=== PATIENT | male | born 1935 | race Two or more races ===

== ENCOUNTER 2017-04-29 05:23 | Inpatient (IN) | payer BC ==
[2017-04-29 06:01] LABS: ADD MAN DIFF? NO
[2017-04-29 06:11] LABS: ABNORMAL IP MESSAGE 1; BASOPHILS % 0.1 % (0.0-2.0); HEMATOCRIT 41.4 % (42.0-52.0); LYMPHOCYTES # 0.5 10^3/ul (0.8-2.9); LYMPHOCYTES % 5.9 % (15.0-51.0); MEAN CORPUSCULAR HEMOGLOBIN 32.3 pg (29.0-33.0); MEAN CORPUSCULAR HGB CONC 31.4 g/dl (32.0-37.0); MEAN CORPUSCULAR VOLUME 102.7 fl (82.0-101.0); MEAN PLATELET VOLUME 11.3 fl (7.4-10.4); MONOCYTE # 0.6 10^3/ul (0.3-0.9); MONOCYTES % 6.1 % (0.0-11.0); NEUTROPHIL # 7.9 10^3/ul (1.6-7.5); NEUTROPHILS % 86.8 % (39.0-77.0); PLATELET COUNT 239 10^3/UL (140-415); POSITIVE DIFF @See below; RED BLOOD COUNT 4.03 10^6/ul (4.70-6.10); RED CELL DISTRIBUTION WIDTH 13.4 % (11.5-14.5)
[2017-04-29 06:11] LABS: WHITE BLOOD COUNT 9.1 10^3/ul (4.8-10.8)
[2017-04-29 06:19] LABS: AADO2 Arterial 397.2 mmHg (7.0-24.0); Arterial Base Excess 5.9 mmol/L (-3.0-3); Arterial Blood Gas Oxygen Sat 99.4 mmHG (95.0-100.0); Arterial COHb 1.2 % (0.0-3.0); Arterial Fraction of Oxyhgb 98.1 % (93.0-99.0); Arterial HCO3 31.5 mmol/L (22.0-26.0); Arterial MetHb 0.1 % (0.0-1.5); Arterial Total Hemglobin 13.2 g/dl (12.0-18.0); Arterial pCO2 49.4 mmhg (35-45); Blood Gas Mean Airway Pressure 12; MODE VENT - AC; Site Right Brachial
[2017-04-29 06:36] LABS: INR 2.03; PROTIME 23.4 Sec (11.9-14.9); PT RATIO 1.8
[2017-04-29 06:37] LABS: PARTIAL THROMBOPLASTIN TIME 41.7 Sec (25.0-35.0)
[2017-04-29 06:40] LABS: ALANINE AMINOTRANSFERASE 36 IU/L (13-69); ALBUMIN/GLOBULIN RATIO 0.85; ALKALINE PHOSPHATASE 97 IU/L (42-121); ANION GAP 26 (8-16); ASPARTATE AMINO TRANSFERASE 36 IU/L (15-46); BLOOD UREA NITROGEN 29 mg/dl (7-20); CALCIUM 7.7 mg/dl (8.4-10.2); CARBON DIOXIDE 30 mmol/L (21-31); CHLORIDE 106 mmol/L (97-110); CREATININE 1.41 mg/dl (0.61-1.24); LIPASE 61 U/L (23-300); POTASSIUM 5.9 mmol/L (3.5-5.1); SODIUM 156 mmol/L (135-144); TOTAL PROTEIN 6.5 g/dl (6.1-8.1)
[2017-04-29 06:43] LABS: GLUCOSE 500 mg/dl (70-220)
[2017-04-29 06:51] LABS: TROPONIN-I 0.093 ng/ml (0.00-0.12)
[2017-04-29] MEDS: SODIUM CHLORIDE 0.9% 1L BAG IV* (06:52)
[2017-04-29] MEDS ORDERED: ETOMIDATE 20 MG INJ (07:00)
[2017-04-29] MEDS ORDERED: ROCURONIUM 50 MG INJ (07:00)
[2017-04-29] MEDS: NA POLYST SULFON 15 GM/60 ML BTL PO (07:38)
[2017-04-29] MEDS: PROPOFOL 100 ML IV (07:38)
[2017-04-29 08:39] LABS: LACTIC ACID 2.6 mmol/L (0.5-2.0)
[2017-04-29 11:37] LABS: LACTIC ACID 2.6 mmol/L (0.5-2.0)
[2017-04-29 11:44] LABS: ADD MAN DIFF? NO
[2017-04-29 11:46] LABS: BASOPHILS % 0.2 % (0.0-2.0); HEMATOCRIT 37.3 % (42.0-52.0); HEMOGLOBIN 11.7 g/dl (14.0-18.0); LYMPHOCYTES # 0.8 10^3/ul (0.8-2.9); LYMPHOCYTES % 7.9 % (15.0-51.0); MEAN CORPUSCULAR HEMOGLOBIN 31.7 pg (29.0-33.0); MEAN CORPUSCULAR HGB CONC 31.4 g/dl (32.0-37.0); MEAN CORPUSCULAR VOLUME 101.1 fl (82.0-101.0); MEAN PLATELET VOLUME 10.9 fl (7.4-10.4); MONOCYTE # 0.9 10^3/ul (0.3-0.9); MONOCYTES % 8.7 % (0.0-11.0); NEUTROPHIL # 8.3 10^3/ul (1.6-7.5); NEUTROPHILS % 82.4 % (39.0-77.0); PLATELET COUNT 209 10^3/UL (140-415); RED BLOOD COUNT 3.69 10^6/ul (4.70-6.10); RED CELL DISTRIBUTION WIDTH 13.2 % (11.5-14.5)
[2017-04-29 11:46] LABS: WHITE BLOOD COUNT 10.1 10^3/ul (4.8-10.8)
[2017-04-29 12:10] LABS: CREATINE KINASE 136 IU/L (23-200)
[2017-04-29 12:26] LABS: CK INDEX 2.3
[2017-04-29 12:30] LABS: CK-MB 3.19 ng/ml (0.0-2.4)
[2017-04-29 12:35] LABS: TROPONIN-I 0.834 ng/ml (0.00-0.12)
[2017-04-29 13:01] LABS: HEPATITIS C VIRAL ANTIBODY NEGATIVE (NEGATIVE)
[2017-04-29] MEDS: PIPER-TAZO 3.375 GM IV (PMX) 100 ML IVPB ×3 (13:08→23:54)
[2017-04-29 13:12] LABS: HIV 1&2 ANTIBODY NEGATIVE (NEGATIVE)
[2017-04-29 13:25] LABS: HEPATITIS B SURFACE ANTIGEN NEGATIVE (NEGATIVE)
[2017-04-29] MEDS ORDERED: DEXTROSE 50% 50 ML SYRINGE IV ×2 (13:30)
[2017-04-29] MEDS: ACCU-CHEK XX ×12 (13:30→23:51)
[2017-04-29 13:36] LABS: LACTIC ACID 2.3 mmol/L (0.5-2.0)
[2017-04-29 13:42] LABS: OSMOLALITY 325 mOsm/kg (280-295)
[2017-04-29] MEDS: VANCOMYCIN 1 GM (PMX) 250 ML IVPB (13:42)
[2017-04-29 13:44] LABS: ADD UMIC YES; UR ASCORBIC ACID NEGATIVE (NEGATIVE); UR BILIRUBIN (Dip) NEGATIVE (NEGATIVE); UR BLOOD (Dip) NEGATIVE (NEGATIVE); UR CLARITY CLOUDY (CLEAR); UR COLOR AMBER (YELLOW); UR GLUCOSE (Dip) 3+ mg/dL (NEGATIVE); UR KETONES (Dip) NEGATIVE (NEGATIVE); UR LEUKOCYTE ESTERASE (Dip) NEGATIVE Leu/ul (NEGATIVE); UR NITRITE (Dip) NEGATIVE (NEGATIVE); UR RBC 1 /HPF (0-5); UR SPECIFIC GRAVITY (Dip) 1.027 (1.003-1.030); UR SQUAMOUS EPITHELIAL CELL FEW /HPF (FEW); UR TOTAL PROTEIN (Dip) 3+ mg/dl (NEGATIVE); UR UROBILINOGEN (Dip) NEGATIVE (NEGATIVE); UR WBC 4 /HPF (0-5)
[2017-04-29] MEDS: ALBUTEROL 0.083% (NEB) 2.5 MG/3 ML AMP HHN (14:41)
[2017-04-29] MEDS: IPRATROPIUM (NEB) 0.5 MG/2.5 ML AMP HHN (14:41)
[2017-04-29 15:01] LABS: FREE T4 (FREE THYROXINE) 1.19 ng/dl (0.85-1.93)
[2017-04-29] MEDS: INSULIN HUMAN REGULAR 100 UNIT in SOD CHLORIDE 0.9% 99 ML IV (16:24)
[2017-04-29] MEDS: ENOXAPARIN 80 MG/0.8 ML SYG SC (16:25)
[2017-04-29] MEDS: ALBUTEROL/IPRATROPIUM (NEB) 3 ML AMP HHN (17:00)
[2017-04-29] MEDS ORDERED: VANCOMYCIN IV PER PHARMACY XX (17:00)
[2017-04-29 17:09] LABS: HEPATITIS B SURFACE ANTIBODY INDETERMINATE (NEGATIVE)
[2017-04-29] MEDS: SOD CHLORIDE 0.45% 1,000 ML IV (17:33)
[2017-04-29 17:53] LABS: CREATINE KINASE 51 IU/L (23-200)
[2017-04-29 18:05] LABS: CK INDEX 4.6
[2017-04-29 18:06] LABS: CK-MB 2.33 ng/ml (0.0-2.4); TROPONIN-I 0.678 ng/ml (0.00-0.12)
[2017-04-29] MEDS: VANCOMYCIN 1 GM 250 ML IVPB (18:32)
[2017-04-29] MEDS: IPRATROPIUM (HFA) 12.9 GM INHALER INH (21:26)
[2017-04-29] MEDS: ALBUTEROL HFA 8 GM INHALER INH (21:27)
[2017-04-30] MEDS: ACCU-CHEK XX ×23 (01:45→23:12)
[2017-04-30] MEDS: IPRATROPIUM (HFA) 12.9 GM INHALER INH ×4 (02:07→19:51)
[2017-04-30] MEDS: ALBUTEROL HFA 8 GM INHALER INH ×4 (02:07→19:51)
[2017-04-30 05:38] LABS: ADD MAN DIFF? NO
[2017-04-30 05:45] LABS: WHITE BLOOD COUNT 14.5 10^3/ul (4.8-10.8)
[2017-04-30 05:45] LABS: BASOPHILS % 0.3 % (0.0-2.0); EOSINOPHILS # 0.1 10^3/ul (0.0-0.5); EOSINOPHILS % 0.5 % (0.0-7.0); HEMATOCRIT 36.9 % (42.0-52.0); LYMPHOCYTES # 1.3 10^3/ul (0.8-2.9); LYMPHOCYTES % 8.9 % (15.0-51.0); MEAN CORPUSCULAR HEMOGLOBIN 31.9 pg (29.0-33.0); MEAN CORPUSCULAR HGB CONC 32.5 g/dl (32.0-37.0); MEAN CORPUSCULAR VOLUME 98.1 fl (82.0-101.0); MEAN PLATELET VOLUME 11.3 fl (7.4-10.4); MONOCYTE # 0.9 10^3/ul (0.3-0.9); MONOCYTES % 6.2 % (0.0-11.0); NEUTROPHIL # 12.1 10^3/ul (1.6-7.5); NEUTROPHILS % 83.5 % (39.0-77.0); PLATELET COUNT 240 10^3/UL (140-415); RED BLOOD COUNT 3.76 10^6/ul (4.70-6.10); RED CELL DISTRIBUTION WIDTH 13.5 % (11.5-14.5)
[2017-04-30] MEDS: SOD CHLORIDE 0.45% 1,000 ML IV ×2 (05:54→10:23)
[2017-04-30] MEDS: PIPER-TAZO 3.375 GM IV (PMX) 100 ML IVPB ×2 (05:55→12:19)
[2017-04-30] MEDS: PANTOPRAZOLE 40 MG INJ IV (05:56)
[2017-04-30 06:38] LABS: CK-MB 0.69 ng/ml (0.0-2.4); CREATINE KINASE < 20 IU/L (23-200); TROPONIN-I 0.562 ng/ml (0.00-0.12)
[2017-04-30 07:51] LABS: ALANINE AMINOTRANSFERASE 54 IU/L (13-69); ALBUMIN 2.1 g/dl (3.3-4.9); ALBUMIN/GLOBULIN RATIO 0.77; ALKALINE PHOSPHATASE 91 IU/L (42-121); ANION GAP 14 (8-16); ASPARTATE AMINO TRANSFERASE 48 IU/L (15-46); BILIRUBIN,INDIRECT 0.1 mg/dl (0-1.1); BILIRUBIN,TOTAL 0.1 mg/dl (0.2-1.3); BLOOD UREA NITROGEN 36 mg/dl (7-20); CARBON DIOXIDE 30 mmol/L (21-31); CHLORIDE 107 mmol/L (97-110); CREATININE 1.92 mg/dl (0.61-1.24); GLUCOSE 92 mg/dl (70-220); POTASSIUM 3.6 mmol/L (3.5-5.1); SODIUM 147 mmol/L (135-144); TOTAL PROTEIN 4.8 g/dl (6.1-8.1)
[2017-04-30] MEDS ORDERED: VANCOMYCIN 1 GM (PMX) 250 ML IVPB (08:30)
[2017-04-30] MEDS ORDERED: PIPER-TAZO 3.375 GM IV (PMX) 100 ML IVPB (08:30)
[2017-04-30] MEDS: Discontinue all previous diabetes medication and insulin orders. XX (08:30)
[2017-04-30 09:13] LABS: AADO2 Arterial 236.2 mmHg (7.0-24.0); Allen Test ACCEPTAB; Arterial Base Excess 3.8 mmol/L (-3.0-3); Arterial COHb 0.3 % (0.0-3.0); Arterial Fraction of Oxyhgb 94.6 % (93.0-99.0); Arterial HCO3 28.2 mmol/L (22.0-26.0); Arterial MetHb 0.1 % (0.0-1.5); Arterial Total Hemglobin 13.3 g/dl (12.0-18.0); MODE VENT - AC; Site Right Radial
[2017-04-30] MEDS: FUROSEMIDE 20 MG INJ IV (10:45)
[2017-04-30] MEDS: ACETAMINOPHEN 650 MG SUPP PR (10:45)
[2017-04-30 12:12] LABS: INR 1.54; PROTIME 18.8 Sec (11.9-14.9); PT RATIO 1.5
[2017-04-30 13:55] LABS: HEMOGLOBIN A1C 9.2 % (0-5.9)
[2017-04-30] MEDS: PROPOFOL 100 ML IV ×2 (14:00→18:24)
[2017-04-30] MEDS: LINEZOLID 600 MG/D5W (PMX) 300 ML IVPB ×2 (14:54→23:11)
[2017-04-30] MEDS ORDERED: VANCOMYCIN 1.5 GM in SOD CHLORIDE 0.9% 250 ML IVPB (18:00)
[2017-04-30] MEDS: LEVOFLOXACIN 500MG/D5W (PMX) 100 ML IVPB (18:26)
[2017-04-30] MEDS: METOPROLOL 25 MG TAB PO (21:15)
[2017-04-30] MEDS: PIPER-TAZO 2.25 GM (PMX) 50 ML IVPB (22:17)
[2017-05-01] MEDS: ACCU-CHEK XX ×24 (00:14→23:15)
[2017-05-01] MEDS: ALBUTEROL HFA 8 GM INHALER INH ×4 (01:07→19:18)
[2017-05-01] MEDS: IPRATROPIUM (HFA) 12.9 GM INHALER INH ×4 (01:07→19:19)
[2017-05-01] MEDS: SOD CHLORIDE 0.45% 1,000 ML IV (05:11)
[2017-05-01 05:20] LABS: ADD MAN DIFF? NO
[2017-05-01 05:24] LABS: WHITE BLOOD COUNT 16.8 10^3/ul (4.8-10.8)
[2017-05-01 05:24] LABS: BASOPHILS % 0.2 % (0.0-2.0); EOSINOPHILS # 0.1 10^3/ul (0.0-0.5); EOSINOPHILS % 0.3 % (0.0-7.0); HEMATOCRIT 37.5 % (42.0-52.0); HEMOGLOBIN 12.2 g/dl (14.0-18.0); LYMPHOCYTES # 0.9 10^3/ul (0.8-2.9); LYMPHOCYTES % 5.1 % (15.0-51.0); MEAN CORPUSCULAR HEMOGLOBIN 31.7 pg (29.0-33.0); MEAN CORPUSCULAR HGB CONC 32.5 g/dl (32.0-37.0); MEAN CORPUSCULAR VOLUME 97.4 fl (82.0-101.0); MEAN PLATELET VOLUME 11.3 fl (7.4-10.4); MONOCYTE # 1.1 10^3/ul (0.3-0.9); MONOCYTES % 6.7 % (0.0-11.0); NEUTROPHIL # 14.6 10^3/ul (1.6-7.5); NEUTROPHILS % 87.2 % (39.0-77.0); PLATELET COUNT 259 10^3/UL (140-415); RED BLOOD COUNT 3.85 10^6/ul (4.70-6.10)
[2017-05-01] MEDS: PANTOPRAZOLE 40 MG INJ IV (05:43)
[2017-05-01] MEDS: PIPER-TAZO 2.25 GM (PMX) 50 ML IVPB ×3 (05:43→22:03)
[2017-05-01 05:52] LABS: ANION GAP 13 (8-16); BLOOD UREA NITROGEN 48 mg/dl (7-20); CALCIUM 7.6 mg/dl (8.4-10.2); CARBON DIOXIDE 26 mmol/L (21-31); CHLORIDE 105 mmol/L (97-110); CREATININE 2.66 mg/dl (0.61-1.24); GLUCOSE 118 mg/dl (70-220); POTASSIUM 3.7 mmol/L (3.5-5.1); SODIUM 140 mmol/L (135-144)
[2017-05-01] MEDS: FUROSEMIDE 40 MG INJ IV (08:53)
[2017-05-01] MEDS: LINEZOLID 600 MG/D5W (PMX) 300 ML IVPB ×2 (08:55→20:58)
[2017-05-01] MEDS: METOPROLOL 25 MG TAB PO (08:56)
[2017-05-01] MEDS: DIGOXIN 500 MCG INJ IV (13:10)
[2017-05-01] MEDS: ENOXAPARIN 100 MG/ML SYG SC (13:18)
[2017-05-01] MEDS: PROPOFOL 100 ML IV ×2 (14:00→23:15)
[2017-05-01] MEDS: ATENOLOL 25 MG TAB PO (20:58)
[2017-05-02] MEDS: ACCU-CHEK XX ×11 (00:09→10:30)
[2017-05-02] MEDS: ALBUMIN HUMAN 25% 100 ML IV ×2 (00:14→09:01)
[2017-05-02] MEDS: SOD CHLORIDE 0.9% 500 ML IV ×2 (00:14→08:59)
[2017-05-02] MEDS: ALBUTEROL HFA 8 GM INHALER INH ×4 (01:01→19:20)
[2017-05-02] MEDS: IPRATROPIUM (HFA) 12.9 GM INHALER INH ×4 (01:02→19:20)
[2017-05-02] MEDS: PANTOPRAZOLE 40 MG INJ IV (05:01)
[2017-05-02] MEDS: FUROSEMIDE 20 MG INJ IV (05:01)
[2017-05-02] MEDS: PIPER-TAZO 2.25 GM (PMX) 50 ML IVPB ×3 (05:01→22:20)
[2017-05-02 05:57] LABS: ADD MAN DIFF? NO
[2017-05-02 05:58] LABS: BASOPHILS % 0.2 % (0.0-2.0); EOSINOPHILS % 0.3 % (0.0-7.0); HEMATOCRIT 36.4 % (42.0-52.0); LYMPHOCYTES # 0.8 10^3/ul (0.8-2.9); LYMPHOCYTES % 5.3 % (15.0-51.0); MEAN CORPUSCULAR HEMOGLOBIN 31.8 pg (29.0-33.0); MEAN CORPUSCULAR VOLUME 96.6 fl (82.0-101.0); MEAN PLATELET VOLUME 11.5 fl (7.4-10.4); MONOCYTE # 1.3 10^3/ul (0.3-0.9); MONOCYTES % 8.9 % (0.0-11.0); NEUTROPHIL # 12.7 10^3/ul (1.6-7.5); NEUTROPHILS % 84.7 % (39.0-77.0); PLATELET COUNT 242 10^3/UL (140-415); RED BLOOD COUNT 3.77 10^6/ul (4.70-6.10); RED CELL DISTRIBUTION WIDTH 14.1 % (11.5-14.5)
[2017-05-02 06:21] LABS: ANION GAP 18 (8-16); BLOOD UREA NITROGEN 66 mg/dl (7-20); CALCIUM 7.6 mg/dl (8.4-10.2); CARBON DIOXIDE 24 mmol/L (21-31); CHLORIDE 101 mmol/L (97-110); CREATININE 3.51 mg/dl (0.61-1.24); GLUCOSE 149 mg/dl (70-220); MAGNESIUM 2.2 mg/dl (1.7-2.5); PHOSPHORUS 6.6 mg/dl (2.5-4.9); POTASSIUM 4.1 mmol/L (3.5-5.1); SODIUM 139 mmol/L (135-144)
[2017-05-02 06:22] LABS: CREATINE KINASE 29 IU/L (23-200)
[2017-05-02] MEDS: DOPamine-D5W 1.6 MG/ML 250 ML IV (07:21)
[2017-05-02 07:27] LABS: CK-MB 0.57 ng/ml (0.0-2.4); TROPONIN-I 0.262 ng/ml (0.00-0.12)
[2017-05-02 08:27] LABS: AADO2 Arterial 300.4 mmHg (7.0-24.0); Allen Test ACCEPTAB; Arterial Base Excess -1.1 mmol/L (-3.0-3); Arterial Blood Gas Oxygen Sat 93.5 mmHG (95.0-100.0); Arterial COHb 0.3 % (0.0-3.0); Arterial Fraction of Oxyhgb 93.1 % (93.0-99.0); Arterial HCO3 25.4 mmol/L (22.0-26.0); Arterial MetHb 0.1 % (0.0-1.5); Arterial pCO2 49.9 mmhg (35-45); MODE VENT - AC; Site Right Radial
[2017-05-02] MEDS: ATENOLOL 25 MG TAB PO ×2 (08:47→20:10)
[2017-05-02] MEDS: LINEZOLID 600 MG/D5W (PMX) 300 ML IVPB ×2 (09:00→20:10)
[2017-05-02] MEDS: INSULIN HUMAN REGULAR 100 UNIT in SOD CHLORIDE 0.9% 99 ML IV (10:27)
[2017-05-02] MEDS: FUROSEMIDE 40 MG INJ IV (10:33)
[2017-05-02] MEDS: ENOXAPARIN 100 MG/ML SYG SC (12:30)
[2017-05-02] MEDS: INSULIN ASPART [NOVOLOG] 3 ML PEN SC ×3 (13:13→21:47)
[2017-05-02] MEDS: INSULIN GLARGINE [LANtus] 3 ML PEN SC (13:14)
[2017-05-02] MEDS: PROPOFOL 100 ML IV (13:14)
[2017-05-02] MEDS: LIDOCAINE 1% (MPF) 5 ML VIAL SC (14:30)
[2017-05-02] MEDS ORDERED: HEPARIN (10 UNITS/ML) 5ML SYG IV (15:00)
[2017-05-02] MEDS: LEVOFLOXACIN 250MG/D5W (PMX) 50 ML IVPB (15:33)
[2017-05-02] MEDS: ENOXAPARIN 60 MG/0.6 ML SYG SC (15:39)
[2017-05-03] MEDS: VANCOMYCIN HCL 250 MG/5ML POSYG NGT ×4 (00:22→18:18)
[2017-05-03] MEDS: IPRATROPIUM (HFA) 12.9 GM INHALER INH ×4 (01:07→19:48)
[2017-05-03] MEDS: ALBUTEROL HFA 8 GM INHALER INH ×4 (01:07→19:48)
[2017-05-03] MEDS: INSULIN ASPART [NOVOLOG] 3 ML PEN SC ×6 (01:16→21:38)
[2017-05-03] MEDS: ACCU-CHEK XX (01:16)
[2017-05-03] MEDS: PROPOFOL 100 ML IV ×2 (01:16→14:00)
[2017-05-03] MEDS: DOPamine-D5W 1.6 MG/ML 250 ML IV (04:51)
[2017-05-03] MEDS: PANTOPRAZOLE 40 MG INJ IV (05:20)
[2017-05-03] MEDS: PIPER-TAZO 2.25 GM (PMX) 50 ML IVPB ×3 (05:57→21:31)
[2017-05-03 06:03] LABS: ADD MAN DIFF? NO
[2017-05-03 06:12] LABS: ABNORMAL IP MESSAGE 1; BASOPHILS % 0.2 % (0.0-2.0); EOSINOPHILS # 0.2 10^3/ul (0.0-0.5); EOSINOPHILS % 1.5 % (0.0-7.0); HEMATOCRIT 37.1 % (42.0-52.0); HEMOGLOBIN 12.4 g/dl (14.0-18.0); LYMPHOCYTES # 0.5 10^3/ul (0.8-2.9); LYMPHOCYTES % 4.2 % (15.0-51.0); MEAN CORPUSCULAR HGB CONC 33.4 g/dl (32.0-37.0); MEAN CORPUSCULAR VOLUME 95.6 fl (82.0-101.0); MEAN PLATELET VOLUME 11.6 fl (7.4-10.4); MONOCYTE # 1.4 10^3/ul (0.3-0.9); MONOCYTES % 10.6 % (0.0-11.0); NEUTROPHIL # 10.7 10^3/ul (1.6-7.5); NEUTROPHILS % 82.8 % (39.0-77.0); PLATELET COUNT 289 10^3/UL (140-415); POSITIVE DIFF @See below; RED BLOOD COUNT 3.88 10^6/ul (4.70-6.10); RED CELL DISTRIBUTION WIDTH 13.8 % (11.5-14.5)
[2017-05-03 06:12] LABS: WHITE BLOOD COUNT 12.9 10^3/ul (4.8-10.8)
[2017-05-03 06:33] LABS: ANION GAP 19 (8-16); BLOOD UREA NITROGEN 78 mg/dl (7-20); CARBON DIOXIDE 25 mmol/L (21-31); CHLORIDE 99 mmol/L (97-110); CREATININE 4.07 mg/dl (0.61-1.24); GLUCOSE 116 mg/dl (70-220); MAGNESIUM 2.4 mg/dl (1.7-2.5); PHOSPHORUS 7.8 mg/dl (2.5-4.9); POTASSIUM 3.7 mmol/L (3.5-5.1); SODIUM 139 mmol/L (135-144)
[2017-05-03 08:23] LABS: AADO2 Arterial 381.1 mmHg (7.0-24.0); Allen Test ACCEPTAB; Arterial Blood Gas Oxygen Sat 93.9 mmHG (95.0-100.0); Arterial COHb 0.3 % (0.0-3.0); Arterial Fraction of Oxyhgb 93.6 % (93.0-99.0); Arterial HCO3 22.7 mmol/L (22.0-26.0); Arterial MetHb 0 % (0.0-1.5); Arterial Total Hemglobin 13.3 g/dl (12.0-18.0); Arterial pCO2 42.7 mmhg (35-45); MODE VENT - AC; Site Right Radial
[2017-05-03] MEDS: FUROSEMIDE 40 MG INJ IV (08:45)
[2017-05-03] MEDS: INSULIN GLARGINE [LANtus] 3 ML PEN SC (08:47)
[2017-05-03] MEDS: ATENOLOL 25 MG TAB PO ×2 (10:52→21:30)
[2017-05-03] MEDS: ENOXAPARIN 100 MG/ML SYG SC (16:40)
[2017-05-04] MEDS: INSULIN ASPART [NOVOLOG] 3 ML PEN SC ×6 (01:00→21:41)
[2017-05-04] MEDS: VANCOMYCIN HCL 250 MG/5ML POSYG NGT ×4 (01:16→17:02)
[2017-05-04] MEDS: DOPamine-D5W 1.6 MG/ML 250 ML IV (01:20)
[2017-05-04] MEDS: IPRATROPIUM (HFA) 12.9 GM INHALER INH ×4 (01:34→19:48)
[2017-05-04] MEDS: ALBUTEROL HFA 8 GM INHALER INH ×4 (01:34→19:47)
[2017-05-04] MEDS: PROPOFOL 100 ML IV ×2 (02:00→13:59)
[2017-05-04] MEDS: ACCU-CHEK XX (02:54)
[2017-05-04 04:45] LABS: ADD MAN DIFF? NO
[2017-05-04 04:52] LABS: WHITE BLOOD COUNT 11.1 10^3/ul (4.8-10.8)
[2017-05-04 04:52] LABS: ABNORMAL IP MESSAGE 1; BASOPHILS % 0.2 % (0.0-2.0); EOSINOPHILS # 0.2 10^3/ul (0.0-0.5); EOSINOPHILS % 1.4 % (0.0-7.0); HEMATOCRIT 33.4 % (42.0-52.0); HEMOGLOBIN 11.3 g/dl (14.0-18.0); LYMPHOCYTES # 0.6 10^3/ul (0.8-2.9); MEAN CORPUSCULAR HEMOGLOBIN 31.7 pg (29.0-33.0); MEAN CORPUSCULAR HGB CONC 33.8 g/dl (32.0-37.0); MEAN CORPUSCULAR VOLUME 93.6 fl (82.0-101.0); MEAN PLATELET VOLUME 11.5 fl (7.4-10.4); MONOCYTE # 1.3 10^3/ul (0.3-0.9); NEUTROPHIL # 8.9 10^3/ul (1.6-7.5); NEUTROPHILS % 80.8 % (39.0-77.0); PLATELET COUNT 274 10^3/UL (140-415); POSITIVE DIFF @See below; RED BLOOD COUNT 3.57 10^6/ul (4.70-6.10); RED CELL DISTRIBUTION WIDTH 14.2 % (11.5-14.5)
[2017-05-04 05:21] LABS: ANION GAP 18 (8-16); BLOOD UREA NITROGEN 90 mg/dl (7-20); CALCIUM 7.9 mg/dl (8.4-10.2); CARBON DIOXIDE 25 mmol/L (21-31); CHLORIDE 100 mmol/L (97-110); CREATININE 4.54 mg/dl (0.61-1.24); GLUCOSE 121 mg/dl (70-220); POTASSIUM 3.5 mmol/L (3.5-5.1); SODIUM 139 mmol/L (135-144)
[2017-05-04] MEDS: PANTOPRAZOLE 40 MG INJ IV (05:34)
[2017-05-04] MEDS: PIPER-TAZO 2.25 GM (PMX) 50 ML IVPB ×3 (05:34→21:45)
[2017-05-04] MEDS: INSULIN GLARGINE [LANtus] 3 ML PEN SC (08:42)
[2017-05-04 08:44] LABS: AADO2 Arterial 345.9 mmHg (7.0-24.0); Allen Test ACCEPTAB; Arterial COHb 0.3 % (0.0-3.0); Arterial Fraction of Oxyhgb 92.5 % (93.0-99.0); Arterial HCO3 24.6 mmol/L (22.0-26.0); Arterial MetHb 0.2 % (0.0-1.5); Arterial Total Hemglobin 12.8 g/dl (12.0-18.0); Arterial pCO2 44.4 mmhg (35-45); MODE VENT - AC; Site Right Radial
[2017-05-04] MEDS: ATENOLOL 25 MG TAB PO (09:00)
[2017-05-04] MEDS: FUROSEMIDE 20 MG INJ IV (09:15)
[2017-05-04 11:08] LABS: INR 1.43; PROTIME 17.7 Sec (11.9-14.9); PT RATIO 1.4
[2017-05-04 11:09] LABS: PARTIAL THROMBOPLASTIN TIME 44.6 Sec (25.0-35.0)
[2017-05-04] MEDS: LIDOCAINE 1% (MPF) 5 ML VIAL (11:43)
[2017-05-04] MEDS: ENOXAPARIN 100 MG/ML SYG SC (17:04)
[2017-05-05] MEDS: VANCOMYCIN HCL 250 MG/5ML POSYG NGT ×5 (00:03→23:04)
[2017-05-05] MEDS: DOPamine-D5W 1.6 MG/ML 250 ML IV ×2 (00:07→23:07)
[2017-05-05] MEDS: INSULIN ASPART [NOVOLOG] 3 ML PEN SC ×6 (01:25→21:26)
[2017-05-05] MEDS: IPRATROPIUM (HFA) 12.9 GM INHALER INH ×4 (01:32→19:49)
[2017-05-05] MEDS: ALBUTEROL HFA 8 GM INHALER INH ×4 (01:32→19:49)
[2017-05-05] MEDS: ACCU-CHEK XX (02:00)
[2017-05-05] MEDS: PROPOFOL 100 ML IV ×2 (02:00→13:07)
[2017-05-05 05:42] LABS: ADD MAN DIFF? NO
[2017-05-05 05:43] LABS: ABNORMAL IP MESSAGE 1; BASOPHILS % 0.2 % (0.0-2.0); EOSINOPHILS # 0.1 10^3/ul (0.0-0.5); EOSINOPHILS % 0.9 % (0.0-7.0); HEMATOCRIT 32.2 % (42.0-52.0); LYMPHOCYTES # 0.5 10^3/ul (0.8-2.9); MEAN CORPUSCULAR HEMOGLOBIN 31.8 pg (29.0-33.0); MEAN CORPUSCULAR HGB CONC 34.2 g/dl (32.0-37.0); MEAN CORPUSCULAR VOLUME 93.1 fl (82.0-101.0); MEAN PLATELET VOLUME 11.3 fl (7.4-10.4); MONOCYTE # 1.3 10^3/ul (0.3-0.9); MONOCYTES % 12.6 % (0.0-11.0); NEUTROPHIL # 8.1 10^3/ul (1.6-7.5); NEUTROPHILS % 80.2 % (39.0-77.0); PLATELET COUNT 256 10^3/UL (140-415); POSITIVE DIFF @See below; RED BLOOD COUNT 3.46 10^6/ul (4.70-6.10); RED CELL DISTRIBUTION WIDTH 14.3 % (11.5-14.5)
[2017-05-05 06:07] LABS: ANION GAP 18 (8-16); BLOOD UREA NITROGEN 102 mg/dl (7-20); CALCIUM 7.9 mg/dl (8.4-10.2); CARBON DIOXIDE 23 mmol/L (21-31); CHLORIDE 101 mmol/L (97-110); CREATININE 4.93 mg/dl (0.61-1.24); GLUCOSE 162 mg/dl (70-220); MAGNESIUM 2.7 mg/dl (1.7-2.5); PHOSPHORUS 7.8 mg/dl (2.5-4.9); POTASSIUM 3.2 mmol/L (3.5-5.1); SODIUM 139 mmol/L (135-144)
[2017-05-05] MEDS: PIPER-TAZO 2.25 GM (PMX) 50 ML IVPB ×3 (06:20→21:08)
[2017-05-05] MEDS: PANTOPRAZOLE 40 MG INJ IV (06:20)
[2017-05-05 08:06] LABS: AADO2 Arterial 173.5 mmHg (7.0-24.0); Allen Test ACCEPTAB; Arterial Base Excess -3.8 mmol/L (-3.0-3); Arterial Blood Gas Oxygen Sat 93.2 mmHG (95.0-100.0); Arterial COHb 0.4 % (0.0-3.0); Arterial Fraction of Oxyhgb 92.7 % (93.0-99.0); Arterial HCO3 21.1 mmol/L (22.0-26.0); Arterial MetHb 0.1 % (0.0-1.5); Arterial pCO2 37.9 mmhg (35-45); MODE VENT - AC; Site Right Radial
[2017-05-05] MEDS: INSULIN GLARGINE [LANtus] 3 ML PEN SC (08:17)
[2017-05-05] MEDS: FUROSEMIDE 20 MG INJ IV ×2 (08:20→17:02)
[2017-05-05] MEDS ORDERED: HEPARIN 1000 UNITS/ML 10 ML INJ IV (11:30)
[2017-05-05] MEDS: HEPARIN 1000 UNITS/ML 10 ML INJ IV (11:42)
[2017-05-05 12:38] LABS: ADD MAN DIFF? NO
[2017-05-05 12:41] LABS: WHITE BLOOD COUNT 10.2 10^3/ul (4.8-10.8)
[2017-05-05 12:41] LABS: ABNORMAL IP MESSAGE 1; BASOPHILS % 0.3 % (0.0-2.0); EOSINOPHILS # 0.1 10^3/ul (0.0-0.5); EOSINOPHILS % 0.9 % (0.0-7.0); HEMATOCRIT 31.9 % (42.0-52.0); HEMOGLOBIN 10.8 g/dl (14.0-18.0); LYMPHOCYTES # 0.5 10^3/ul (0.8-2.9); LYMPHOCYTES % 5.1 % (15.0-51.0); MEAN CORPUSCULAR HEMOGLOBIN 31.4 pg (29.0-33.0); MEAN CORPUSCULAR HGB CONC 33.9 g/dl (32.0-37.0); MEAN CORPUSCULAR VOLUME 92.7 fl (82.0-101.0); MEAN PLATELET VOLUME 11.2 fl (7.4-10.4); MONOCYTE # 1.3 10^3/ul (0.3-0.9); MONOCYTES % 12.9 % (0.0-11.0); NEUTROPHIL # 8.1 10^3/ul (1.6-7.5); NEUTROPHILS % 79.3 % (39.0-77.0); PLATELET COUNT 258 10^3/UL (140-415); POSITIVE DIFF @See below; RED BLOOD COUNT 3.44 10^6/ul (4.70-6.10); RED CELL DISTRIBUTION WIDTH 14.3 % (11.5-14.5)
[2017-05-05 12:59] LABS: INR 1.46; PT RATIO 1.4
[2017-05-05 13:17] LABS: PARTIAL THROMBOPLASTIN TIME 91.8 Sec (25.0-35.0)
[2017-05-05 15:08] LABS: PARTIAL THROMBOPLASTIN TIME 47.1 Sec (25.0-35.0)
[2017-05-06] MEDS: INSULIN ASPART [NOVOLOG] 3 ML PEN SC ×6 (01:04→20:58)
[2017-05-06] MEDS: ACCU-CHEK XX (01:07)
[2017-05-06] MEDS: PROPOFOL 100 ML IV ×2 (01:07→14:00)
[2017-05-06] MEDS: ALBUTEROL HFA 8 GM INHALER INH ×4 (01:29→20:54)
[2017-05-06] MEDS: IPRATROPIUM (HFA) 12.9 GM INHALER INH ×4 (01:29→20:53)
[2017-05-06 05:06] LABS: ADD MAN DIFF? NO
[2017-05-06 05:17] LABS: WHITE BLOOD COUNT 9.9 10^3/ul (4.8-10.8)
[2017-05-06 05:17] LABS: BASOPHILS % 0.3 % (0.0-2.0); EOSINOPHILS # 0.2 10^3/ul (0.0-0.5); EOSINOPHILS % 1.5 % (0.0-7.0); HEMATOCRIT 31.5 % (42.0-52.0); HEMOGLOBIN 10.8 g/dl (14.0-18.0); LYMPHOCYTES # 0.7 10^3/ul (0.8-2.9); LYMPHOCYTES % 6.7 % (15.0-51.0); MEAN CORPUSCULAR HEMOGLOBIN 31.5 pg (29.0-33.0); MEAN CORPUSCULAR HGB CONC 34.3 g/dl (32.0-37.0); MEAN CORPUSCULAR VOLUME 91.8 fl (82.0-101.0); MEAN PLATELET VOLUME 11.3 fl (7.4-10.4); MONOCYTE # 1.3 10^3/ul (0.3-0.9); MONOCYTES % 13.5 % (0.0-11.0); NEUTROPHIL # 7.5 10^3/ul (1.6-7.5); NEUTROPHILS % 75.9 % (39.0-77.0); PLATELET COUNT 272 10^3/UL (140-415); RED BLOOD COUNT 3.43 10^6/ul (4.70-6.10); RED CELL DISTRIBUTION WIDTH 14.3 % (11.5-14.5)
[2017-05-06] MEDS: VANCOMYCIN HCL 250 MG/5ML POSYG NGT ×3 (05:34→18:38)
[2017-05-06] MEDS: PIPER-TAZO 2.25 GM (PMX) 50 ML IVPB ×3 (05:34→21:32)
[2017-05-06] MEDS: FUROSEMIDE 20 MG INJ IV ×2 (05:35→17:33)
[2017-05-06] MEDS: PANTOPRAZOLE 40 MG INJ IV (05:35)
[2017-05-06 05:48] LABS: ANION GAP 19 (8-16); BLOOD UREA NITROGEN 105 mg/dl (7-20); CALCIUM 8.1 mg/dl (8.4-10.2); CARBON DIOXIDE 24 mmol/L (21-31); CHLORIDE 100 mmol/L (97-110); CREATININE 5.06 mg/dl (0.61-1.24); GLUCOSE 183 mg/dl (70-220); POTASSIUM 3.1 mmol/L (3.5-5.1); SODIUM 140 mmol/L (135-144)
[2017-05-06] MEDS: INSULIN GLARGINE [LANtus] 3 ML PEN SC (08:12)
[2017-05-06] MEDS: POTASSIUM CHLORIDE 100 ML IVPB (12:32)
[2017-05-06 14:03] LABS: PROCALCITONIN 0.32 ng/mL (<0.10)
[2017-05-06] MEDS: HEPARIN 1000 UNITS/ML 10 ML INJ CATHETER (21:23)
[2017-05-07] MEDS: VANCOMYCIN HCL 250 MG/5ML POSYG NGT ×4 (00:03→17:46)
[2017-05-07] MEDS: INSULIN ASPART [NOVOLOG] 3 ML PEN SC ×6 (01:09→20:51)
[2017-05-07] MEDS: IPRATROPIUM (HFA) 12.9 GM INHALER INH ×4 (01:30→19:33)
[2017-05-07] MEDS: ALBUTEROL HFA 8 GM INHALER INH ×4 (01:30→19:33)
[2017-05-07] MEDS: ACCU-CHEK XX (01:30)
[2017-05-07] MEDS: PROPOFOL 100 ML IV ×2 (01:54→13:35)
[2017-05-07] MEDS: PANTOPRAZOLE 40 MG INJ IV (05:08)
[2017-05-07] MEDS: FUROSEMIDE 20 MG INJ IV (05:09)
[2017-05-07 05:36] LABS: ADD MAN DIFF? NO
[2017-05-07 05:47] LABS: WHITE BLOOD COUNT 10.5 10^3/ul (4.8-10.8)
[2017-05-07 05:47] LABS: BASOPHIL # 0.1 10^3/ul (0.0-0.1); BASOPHILS % 0.5 % (0.0-2.0); EOSINOPHILS # 0.2 10^3/ul (0.0-0.5); EOSINOPHILS % 1.8 % (0.0-7.0); HEMATOCRIT 31.5 % (42.0-52.0); HEMOGLOBIN 10.7 g/dl (14.0-18.0); LYMPHOCYTES # 0.7 10^3/ul (0.8-2.9); LYMPHOCYTES % 6.8 % (15.0-51.0); MEAN CORPUSCULAR HEMOGLOBIN 31.3 pg (29.0-33.0); MEAN CORPUSCULAR VOLUME 92.1 fl (82.0-101.0); MEAN PLATELET VOLUME 11.1 fl (7.4-10.4); MONOCYTE # 1.3 10^3/ul (0.3-0.9); MONOCYTES % 11.9 % (0.0-11.0); NEUTROPHIL # 7.8 10^3/ul (1.6-7.5); PLATELET COUNT 274 10^3/UL (140-415); RED BLOOD COUNT 3.42 10^6/ul (4.70-6.10); RED CELL DISTRIBUTION WIDTH 14.3 % (11.5-14.5)
[2017-05-07 05:54] LABS: ALANINE AMINOTRANSFERASE 104 IU/L (13-69); ALBUMIN 2.6 g/dl (3.3-4.9); ALBUMIN/GLOBULIN RATIO 0.83; ALKALINE PHOSPHATASE 323 IU/L (42-121); ASPARTATE AMINO TRANSFERASE 130 IU/L (15-46); BILIRUBIN,INDIRECT 0.1 mg/dl (0-1.1); BILIRUBIN,TOTAL 0.1 mg/dl (0.2-1.3); BLOOD UREA NITROGEN 85 mg/dl (7-20); CALCIUM 8.1 mg/dl (8.4-10.2); CARBON DIOXIDE 25 mmol/L (21-31); CHLORIDE 101 mmol/L (97-110); GLUCOSE 212 mg/dl (70-220); SODIUM 141 mmol/L (135-144); TOTAL PROTEIN 5.7 g/dl (6.1-8.1)
[2017-05-07 05:55] LABS: ANION GAP 18 (8-16); POTASSIUM 3.3 mmol/L (3.5-5.1)
[2017-05-07] MEDS: INSULIN GLARGINE [LANtus] 3 ML PEN SC (08:06)
[2017-05-07] MEDS ORDERED: ALBUMIN HUMAN 25% 100 ML IV (13:00)
[2017-05-07] MEDS: HEPARIN 1000 UNITS/ML 10 ML INJ IV (15:38)
[2017-05-07] MEDS: HEPARIN 25000 UNITS/250 ML 250 ML IV (15:40)
[2017-05-07] MEDS: HEPARIN 1000 UNITS/ML 10 ML INJ CATHETER (16:17)
[2017-05-07 19:40] LABS: ANION GAP 18 (8-16); BLOOD UREA NITROGEN 63 mg/dl (7-20); CARBON DIOXIDE 26 mmol/L (21-31); CHLORIDE 101 mmol/L (97-110); CREATININE 3.21 mg/dl (0.61-1.24); GLUCOSE 224 mg/dl (70-220); MAGNESIUM 2.4 mg/dl (1.7-2.5); POTASSIUM 3.5 mmol/L (3.5-5.1); SODIUM 141 mmol/L (135-144)
[2017-05-07 22:11] LABS: PARTIAL THROMBOPLASTIN TIME 69.4 Sec (25.0-35.0)
[2017-05-08] MEDS: VANCOMYCIN HCL 250 MG/5ML POSYG NGT ×5 (00:03→23:16)
[2017-05-08] MEDS: INSULIN ASPART [NOVOLOG] 3 ML PEN SC ×6 (01:04→21:20)
[2017-05-08] MEDS: ALBUTEROL HFA 8 GM INHALER INH ×4 (01:24→19:25)
[2017-05-08] MEDS: IPRATROPIUM (HFA) 12.9 GM INHALER INH ×4 (01:24→19:25)
[2017-05-08] MEDS: PROPOFOL 100 ML IV ×2 (01:59→14:00)
[2017-05-08] MEDS: ACCU-CHEK XX (02:11)
[2017-05-08 05:08] LABS: ADD MAN DIFF? NO
[2017-05-08 05:26] LABS: ABNORMAL IP MESSAGE 1; BASOPHILS % 0.3 % (0.0-2.0); EOSINOPHILS # 0.2 10^3/ul (0.0-0.5); HEMATOCRIT 29.8 % (42.0-52.0); HEMOGLOBIN 10.2 g/dl (14.0-18.0); LYMPHOCYTES # 0.9 10^3/ul (0.8-2.9); LYMPHOCYTES % 9.4 % (15.0-51.0); MEAN CORPUSCULAR HEMOGLOBIN 31.9 pg (29.0-33.0); MEAN CORPUSCULAR HGB CONC 34.2 g/dl (32.0-37.0); MEAN CORPUSCULAR VOLUME 93.1 fl (82.0-101.0); MEAN PLATELET VOLUME 10.8 fl (7.4-10.4); MONOCYTE # 1.1 10^3/ul (0.3-0.9); NEUTROPHIL # 6.2 10^3/ul (1.6-7.5); NEUTROPHILS % 68.8 % (39.0-77.0); PLATELET COUNT 282 10^3/UL (140-415); POSITIVE DIFF @See below; RED CELL DISTRIBUTION WIDTH 14.2 % (11.5-14.5)
[2017-05-08] MEDS: PANTOPRAZOLE 40 MG INJ IV (05:34)
[2017-05-08 05:36] LABS: PARTIAL THROMBOPLASTIN TIME 58.8 Sec (25.0-35.0)
[2017-05-08 06:10] LABS: ANION GAP 18 (8-16); BLOOD UREA NITROGEN 69 mg/dl (7-20); CALCIUM 8.1 mg/dl (8.4-10.2); CARBON DIOXIDE 26 mmol/L (21-31); CHLORIDE 102 mmol/L (97-110); CREATININE 3.54 mg/dl (0.61-1.24); GLUCOSE 222 mg/dl (70-220); POTASSIUM 3.5 mmol/L (3.5-5.1); SODIUM 142 mmol/L (135-144)
[2017-05-08] MEDS: INSULIN GLARGINE [LANtus] 3 ML PEN SC ×2 (08:59→12:50)
[2017-05-08] MEDS: HEPARIN 1000 UNITS/ML 10 ML INJ CATHETER (12:05)
[2017-05-08 12:34] LABS: PARTIAL THROMBOPLASTIN TIME 49.4 Sec (25.0-35.0)
[2017-05-08] MEDS: HEPARIN 25000 UNITS/250 ML 250 ML IV (18:36)
[2017-05-08 19:57] LABS: INR 1.28; PROTIME 16.2 Sec (11.9-14.9); PT RATIO 1.3
[2017-05-08 19:59] LABS: PARTIAL THROMBOPLASTIN TIME 63.3 Sec (25.0-35.0)
[2017-05-09] MEDS: ALBUTEROL HFA 8 GM INHALER INH ×4 (00:59→19:46)
[2017-05-09] MEDS: IPRATROPIUM (HFA) 12.9 GM INHALER INH ×4 (00:59→19:46)
[2017-05-09] MEDS: INSULIN ASPART [NOVOLOG] 3 ML PEN SC ×6 (01:28→20:46)
[2017-05-09 01:46] LABS: PARTIAL THROMBOPLASTIN TIME 63.1 Sec (25.0-35.0)
[2017-05-09] MEDS: PROPOFOL 100 ML IV ×2 (02:00→14:00)
[2017-05-09] MEDS: ACCU-CHEK XX (02:00)
[2017-05-09 05:10] LABS: ADD MAN DIFF? NO
[2017-05-09 05:15] LABS: WHITE BLOOD COUNT 9.1 10^3/ul (4.8-10.8)
[2017-05-09 05:15] LABS: ABNORMAL IP MESSAGE 1; BASOPHILS % 0.3 % (0.0-2.0); EOSINOPHILS # 0.3 10^3/ul (0.0-0.5); EOSINOPHILS % 3.2 % (0.0-7.0); HEMATOCRIT 28.7 % (42.0-52.0); HEMOGLOBIN 9.7 g/dl (14.0-18.0); LYMPHOCYTES % 10.9 % (15.0-51.0); MEAN CORPUSCULAR HEMOGLOBIN 31.2 pg (29.0-33.0); MEAN CORPUSCULAR HGB CONC 33.8 g/dl (32.0-37.0); MEAN CORPUSCULAR VOLUME 92.3 fl (82.0-101.0); MEAN PLATELET VOLUME 10.8 fl (7.4-10.4); MONOCYTE # 0.9 10^3/ul (0.3-0.9); MONOCYTES % 9.8 % (0.0-11.0); NEUTROPHIL # 6.2 10^3/ul (1.6-7.5); NEUTROPHILS % 68.5 % (39.0-77.0); PLATELET COUNT 280 10^3/UL (140-415); POSITIVE DIFF @See below; RED BLOOD COUNT 3.11 10^6/ul (4.70-6.10); RED CELL DISTRIBUTION WIDTH 15.1 % (11.5-14.5)
[2017-05-09 05:44] LABS: ALANINE AMINOTRANSFERASE 64 IU/L (13-69); ALBUMIN 2.7 g/dl (3.3-4.9); ALBUMIN/GLOBULIN RATIO 0.81; ALKALINE PHOSPHATASE 298 IU/L (42-121); ANION GAP 19 (8-16); ASPARTATE AMINO TRANSFERASE 51 IU/L (15-46); BILIRUBIN,INDIRECT 0.1 mg/dl (0-1.1); BILIRUBIN,TOTAL 0.1 mg/dl (0.2-1.3); BLOOD UREA NITROGEN 62 mg/dl (7-20); CALCIUM 8.2 mg/dl (8.4-10.2); CARBON DIOXIDE 28 mmol/L (21-31); CHLORIDE 102 mmol/L (97-110); CREATININE 2.96 mg/dl (0.61-1.24); GLUCOSE 129 mg/dl (70-220); POTASSIUM 3.5 mmol/L (3.5-5.1); SODIUM 145 mmol/L (135-144)
[2017-05-09] MEDS: VANCOMYCIN HCL 250 MG/5ML POSYG NGT ×4 (05:57→23:30)
[2017-05-09] MEDS: PANTOPRAZOLE 40 MG INJ IV (05:57)
[2017-05-09 06:19] LABS: ADD UMIC YES; UR AMORPHOUS CRYSTAL FEW /HPF (NONE SEEN); UR ASCORBIC ACID NEGATIVE (NEGATIVE); UR BILIRUBIN (Dip) NEGATIVE (NEGATIVE); UR BLOOD (Dip) 2+ mg/dL (NEGATIVE); UR CLARITY CLOUDY (CLEAR); UR COLOR YELLOW (YELLOW); UR GLUCOSE (Dip) NEGATIVE (NEGATIVE); UR KETONES (Dip) NEGATIVE (NEGATIVE); UR LEUKOCYTE ESTERASE (Dip) TRACE Leu/ul (NEGATIVE); UR MUCUS FEW /HPF (NONE SEEN); UR NITRITE (Dip) NEGATIVE (NEGATIVE); UR RBC 38 /HPF (0-5); UR SPECIFIC GRAVITY (Dip) 1.012 (1.003-1.030); UR TOTAL PROTEIN (Dip) 1+ mg/dl (NEGATIVE); UR UROBILINOGEN (Dip) NEGATIVE (NEGATIVE); UR WBC 8 /HPF (0-5)
[2017-05-09] MEDS: INSULIN GLARGINE [LANtus] 3 ML PEN SC (09:03)
[2017-05-09] MEDS: HEPARIN 25000 UNITS/250 ML 250 ML IV (17:33)
[2017-05-10] MEDS: INSULIN ASPART [NOVOLOG] 3 ML PEN SC ×6 (01:22→21:16)
[2017-05-10] MEDS: PROPOFOL 100 ML IV ×2 (02:00→14:00)
[2017-05-10] MEDS: IPRATROPIUM (HFA) 12.9 GM INHALER INH ×4 (02:01→19:02)
[2017-05-10] MEDS: ALBUTEROL HFA 8 GM INHALER INH ×4 (02:01→19:02)
[2017-05-10] MEDS: ACCU-CHEK XX (02:22)
[2017-05-10] MEDS ORDERED: PENDING SANTYL ORDER FOR WOUND CARE XX (03:30)
[2017-05-10] MEDS: VANCOMYCIN HCL 250 MG/5ML POSYG NGT ×3 (05:12→17:48)
[2017-05-10] MEDS: PANTOPRAZOLE 40 MG INJ IV (05:12)
[2017-05-10 06:55] LABS: PARTIAL THROMBOPLASTIN TIME 50.2 Sec (25.0-35.0)
[2017-05-10] MEDS: INSULIN GLARGINE [LANtus] 3 ML PEN SC (08:17)
[2017-05-10] MEDS: HEPARIN 1000 UNITS/ML 10 ML INJ CATHETER (12:00)
[2017-05-10] MEDS: HEPARIN 25000 UNITS/250 ML 250 ML IV (14:57)
[2017-05-10 16:07] LABS: PARTIAL THROMBOPLASTIN TIME 93.7 Sec (25.0-35.0)
[2017-05-10] MEDS ORDERED: NYSTATIN 30 GM POWDER BTL TOP (21:00)
[2017-05-10 21:03] LABS: PARTIAL THROMBOPLASTIN TIME 75.2 Sec (25.0-35.0)
[2017-05-10] MEDS: NYSTATIN 15 GM POWDER BTL TOP (21:11)
[2017-05-11] MEDS: VANCOMYCIN HCL 250 MG/5ML POSYG NGT ×4 (00:29→18:24)
[2017-05-11] MEDS: INSULIN ASPART [NOVOLOG] 3 ML PEN SC ×5 (00:47→17:00)
[2017-05-11] MEDS: ALBUTEROL HFA 8 GM INHALER INH ×4 (01:10→19:17)
[2017-05-11] MEDS: IPRATROPIUM (HFA) 12.9 GM INHALER INH ×4 (01:10→19:16)
[2017-05-11] MEDS: ACCU-CHEK XX (01:47)
[2017-05-11] MEDS: PROPOFOL 100 ML IV ×2 (02:00→14:00)
[2017-05-11 03:23] LABS: ADD MAN DIFF? NO
[2017-05-11 03:27] LABS: BASOPHIL # 0.1 10^3/ul (0.0-0.1); BASOPHILS % 0.5 % (0.0-2.0); EOSINOPHILS # 0.4 10^3/ul (0.0-0.5); EOSINOPHILS % 3.4 % (0.0-7.0); LYMPHOCYTES # 0.7 10^3/ul (0.8-2.9); MEAN CORPUSCULAR HEMOGLOBIN 31.7 pg (29.0-33.0); MEAN CORPUSCULAR HGB CONC 33.3 g/dl (32.0-37.0); MEAN CORPUSCULAR VOLUME 95.2 fl (82.0-101.0); MEAN PLATELET VOLUME 10.1 fl (7.4-10.4); MONOCYTE # 0.9 10^3/ul (0.3-0.9); MONOCYTES % 8.9 % (0.0-11.0); NEUTROPHIL # 7.9 10^3/ul (1.6-7.5); NEUTROPHILS % 75.5 % (39.0-77.0); PLATELET COUNT 258 10^3/UL (140-415); RED BLOOD COUNT 3.15 10^6/ul (4.70-6.10); RED CELL DISTRIBUTION WIDTH 14.8 % (11.5-14.5)
[2017-05-11 03:27] LABS: WHITE BLOOD COUNT 10.5 10^3/ul (4.8-10.8)
[2017-05-11 03:59] LABS: ANION GAP 15 (8-16); BLOOD UREA NITROGEN 67 mg/dl (7-20); CALCIUM 8.4 mg/dl (8.4-10.2); CARBON DIOXIDE 29 mmol/L (21-31); CHLORIDE 103 mmol/L (97-110); CREATININE 2.92 mg/dl (0.61-1.24); GLUCOSE 146 mg/dl (70-220); POTASSIUM 3.4 mmol/L (3.5-5.1); SODIUM 144 mmol/L (135-144)
[2017-05-11 03:59] LABS: PARTIAL THROMBOPLASTIN TIME 74.5 Sec (25.0-35.0)
[2017-05-11] MEDS: PANTOPRAZOLE 40 MG INJ IV (06:20)
[2017-05-11] MEDS: INSULIN GLARGINE [LANtus] 3 ML PEN SC (09:50)
[2017-05-11] MEDS: NYSTATIN 15 GM POWDER BTL TOP (09:51)
[2017-05-11] MEDS: BALSAM PERU/CASTOR OIL 60 GM TUBE TOP (09:51)
[2017-05-11 12:45] LABS: PARTIAL THROMBOPLASTIN TIME 72.1 Sec (25.0-35.0)
[2017-05-11] MEDS: POTASSIUM CHLORIDE 20 MEQ POWDER FOR ORAL SOLN NGT (13:53)
[2017-05-11] MEDS: HEPARIN 25000 UNITS/250 ML 250 ML IV (15:04)
[2017-05-11 18:07] LABS: PARTIAL THROMBOPLASTIN TIME 58.4 Sec (25.0-35.0)
== END 2017-05-11 20:00 | disposition short-term general hospital (02) | DRG 207 ==
LOC: E/R 05:23 → ICU 15:35
PROVIDERS: Internal Medicine
PROC: 5A1955Z Respiratory Ventilation, Greater than 96 Consecutive Hours (ICD-10-PCS; principal; 2017-04-29)
PROC: 0BH17EZ Insertion of Endotracheal Airway into Trachea, Via Natural or Artificial Opening (ICD-10-PCS; 2017-04-29)
PROC: 4A133R1 Monitoring of Arterial Saturation, Peripheral, Percutaneous Approach (ICD-10-PCS; 2017-04-29)
PROC: B54MZZA Ultrasonography of Right Upper Extremity Veins, Guidance (ICD-10-PCS; 2017-05-02)
PROC: 02HV33Z Insertion of Infusion Device into Superior Vena Cava, Percutaneous Approach (ICD-10-PCS; 2017-05-02)
PROC: 0BJQ3ZZ Inspection of Pleura, Percutaneous Approach (ICD-10-PCS; 2017-05-04)
PROC: 5A1D70Z Performance of Urinary Filtration, Intermittent, Less than 6 Hours Per Day (ICD-10-PCS; 2017-05-06)
PROC: 06HN33Z Insertion of Infusion Device into Left Femoral Vein, Percutaneous Approach (ICD-10-PCS; 2017-05-06)
DX: J18.9 Pneumonia, unspecified organism (principal); I21.A1 Myocardial infarction type 2; J96.01 Acute respiratory failure with hypoxia; R65.21 Severe sepsis with septic shock; N17.0 Acute kidney failure with tubular necrosis; A41.9 Sepsis, unspecified organism; G93.40 Encephalopathy, unspecified; I50.43 Acute on chronic combined systolic (congestive) and diastolic (congestive) heart failure; E11.10 Type 2 diabetes mellitus with ketoacidosis without coma; I13.0 Hypertensive heart and chronic kidney disease with heart failure and stage 1 through stage 4 chronic kidney disease, or unspecified chronic kidney disease; D68.9 Coagulation defect, unspecified; J98.19 Other pulmonary collapse; I31.3 Pericardial effusion (noninflammatory); E87.0 Hyperosmolality and hypernatremia; A04.72 Enterocolitis due to Clostridium difficile, not specified as recurrent; I82.622 Acute embolism and thrombosis of deep veins of left upper extremity; I42.9 Cardiomyopathy, unspecified; E11.65 Type 2 diabetes mellitus with hyperglycemia; E11.22 Type 2 diabetes mellitus with diabetic chronic kidney disease; I48.91 Unspecified atrial fibrillation; I25.10 Atherosclerotic heart disease of native coronary artery without angina pectoris; N40.0 Benign prostatic hyperplasia without lower urinary tract symptoms; F03.90 Unspecified dementia, unspecified severity, without behavioral disturbance, psychotic disturbance, mood disturbance, and anxiety; I72.8 Aneurysm of other specified arteries; D73.4 Cyst of spleen; E87.5 Hyperkalemia; R00.1 Bradycardia, unspecified; E78.00 Pure hypercholesterolemia, unspecified; D64.9 Anemia, unspecified; N18.9 Chronic kidney disease, unspecified; Z82.49 Family history of ischemic heart disease and other diseases of the circulatory system; Z86.73 Personal history of transient ischemic attack (TIA), and cerebral infarction without residual deficits
CPT/HCPCS: 31500; 36415; 36569; 36600; 70450; 71045; 71250; 74176; 76937; 76942; 80048; 80053; 81001; 82550; 82553; 82803; 82962; 83036; 83605; 83690; 83735; 83930; 84100; 84145; 84439; 84443; 84484; 85025; 85610; 85730; 86703; 86706; 86803; 87040; 87070; 87075; 87081; 87086; 87340; 87400; 87449; 89190; 89220; 90935; 93005; 93306; 93970; 94002; 94003; 94640; 94770; 94799; 96374; 96375; 99291-25; J1940